=== PATIENT | male | born 1965 | race Caucasian/White ===

== ENCOUNTER → 2019-08-09 | Outpatient (CLI) | payer OTHER ==
--- NOTE | 2019-08-09 14:43 | RADIOLOGY REPORT (SQ) ---
EXAM DESCRIPTION: CHEST PA/LATERAL COMPLETED DATE/TIME: 08/09/2019 11:12 am REASON FOR STUDY: PAIN IN LEFT SHOULDER COMPARISON: 09/03/2016 two-view chest EXAM PARAMETERS: NUMBER OF VIEWS: two views TECHNIQUE: Digital Frontal and Lateral radiographic views of the chest acquired. RADIATION DOSE: NA LIMITATIONS: none FINDINGS: LUNGS AND PLEURA: No opacities, masses or pneumothorax. No pleural effusion. Mild hyperin flation from obstructive disease. MEDIASTINUM AND HILAR STRUCTURES: No masses or contour abnormalities. HEART AND VASCULAR STRUCTURES: Heart normal size. No evidence for failure. BONES: No acute findings. HARDWARE: None in the chest. OTHER: No other significant finding. IMPRESSION: No acute infiltrates. No pneumothorax. Mild hyperinflation from obstructive disease TECHNICAL DOCUMENTATION: JOB ID: [id number] [employer]- All Rights Reserved Reading location - IP/workstation name: [email or web address]
== END ==
LOC: OD 10:51
PROVIDERS: ATTEND Physician Assistant
DX: M25.512 Pain in left shoulder (principal)
CPT/HCPCS: 71046

== ENCOUNTER → 2019-08-28 | Outpatient (CLI) | payer OTHER ==
--- NOTE | 2019-08-28 19:36 | RADIOLOGY REPORT (SQ) ---
EXAM DESCRIPTION: MRI CERVICAL SPINE COMBO COMPLETED DATE/TIME: 08/28/2019 5:57 pm REASON FOR STUDY: (M54.12)RADICULOPATHY, CERVICAL REGION M54.12 RADICULOPATHY, CERVICAL REGION COMPARISON: None. TECHNIQUE: Sagittal and Axial imaging includes T1, T2, STIR and gradient echo sequences. T1 post andres olinium sequences. CONTRAST TYPE AND DOSE: 7.5 mL Dotarem. RENAL FUNCTION: Not indicated. ACR Type II contrast agent associated with few, if any, unconfounded cases of NSF LIMITATIONS: None. FINDINGS: Within the spinal canal, from the top of C7 to the bottom of T2, a CSF signal arachnoid cy st is present measuring 5 cm craniocaudad by 1.5 cm transverse by 1.1 cm AP. This displaces the cerv ical cord centrally within the canal with mild local mass effect, flattening the upper thoracic cord against the back of the C7, T1, and T2 vertebral bodies. No abnormal intrinsic cord signal or enhanc ement. Medulla, raz, remainder of the cervical cord down to the C6 level is unremarkable. ALIGNMENT: Normal. VERTEBRAE: Intact. BONE MARROW: Hemangioma in the T1 vertebral body DISCS: Diffuse decreased T2 weighted intervertebral signal throughout cervical spine HARDWARE: None in the spine. CORD AND BASE OF BRAIN: As above SOFT TISSUES: No soft tissue masses. C1-C2: No significant spinal stenosis. C2-C3: No significant spinal stenosis or exit foraminal stenosis. C3-C4: Minimal posterior disc bulge. No central stenosis. Mild bilateral foraminal narrowing from f acet hypertrophy. C4-C5: Minimal posterior disc bulge. No central stenosis or foraminal stenosis. C5-C6: Mild posterior disc bulging is present without central stenosis. Mild bilateral foraminal shabana rowing from facet hypertrophy. C6-C7: A left foraminal and lateral disc bulge and bony spurring is present causing high-grade left C 6-7 foraminal narrowing best shown on axial images 96-100/192. No significant central canal stenosis or right foraminal narrowing. C7-T1: No significant bony central canal or foraminal stenosis. The upper portion of the arachnoid c yst is present at this level, displacing the cervical cord ventrally with mild cord flattening. No a bnormal intrinsic cord signal. UPPER THORACIC: Arachnoid cyst displaces the spinal cord within the canal ventrally without abnormal intrinsic cord signal or enhancement. No significant bony central or foraminal stenosis down to the T2-3 level. ENHANCEMENT: No abnormal vertebral body, disc margin, or spinal cord enhancement. OTHER: No other significant finding. IMPRESSION: Left foraminal and lateral disc bulge and bony spur at C6-7 causing high-grade left fora mellisa stenosis Incidental finding of an arachnoid cyst in the dorsal aspect of the spinal canal from the top of C7 t o the bottom of T2. No abnormal contrast enhancement or intrinsic signal of the upper thoracic cord. COMMENT: None. TECHNICAL DOCUMENTATION: JOB ID: [id number] [employer]- All Rights Reserved Reading location - IP/workstation name: [email or web address]
== END ==
LOC: RAD 14:46
PROVIDERS: ATTEND Family Medicine
DX: M50.123 Cervical disc disorder at C6-C7 level with radiculopathy (principal); M48.02 Spinal stenosis, cervical region
CPT/HCPCS: 72156; A9576